=== PATIENT | female | born 1940 | race Caucasian/White ===

== ENCOUNTER 2017-11-14 12:04 | Outpatient (CLI) | payer OTHER | END 2017-11-14 12:16 | disposition home or self-care (01) | LOC: SONOGRAMA 12:04 | DX: N63.11 Unspecified lump in the right breast, upper outer quadrant (principal); N60.11 Diffuse cystic mastopathy of right breast; N60.12 Diffuse cystic mastopathy of left breast ==

== ENCOUNTER 2018-01-27 05:34 | Day surgery (SDC) | payer OTHER | END 2018-01-27 17:20 | disposition home or self-care (01) | LOC: CIR.AMB 05:34 | DX: D05.11 Intraductal carcinoma in situ of right breast (principal) ==